=== PATIENT | male | born 1995 | race African-American/Black ===

== ENCOUNTER 2019-06-05 17:57 | Inpatient (IN) | payer OTHER ==
[~2019-06-05] VITALS: Ht 182.9 cm; Wt 95.6 kg
[2019-06-05] VITALS (7 sets, daily range): BP systolic 128–174; BP diastolic 74–102; O2SAT 100
[2019-06-05] MEDS ORDERED: PROPOFOL 1,000 MG/100 ML VIAL As Ordered ONE (18:10)
[2019-06-05] MEDS ORDERED: PROPOFOL 1,000 MG in IV 1 EA IV SCH (18:11)
[2019-06-05] MEDS ORDERED: SUCCINYLCHOLINE INJ 200 MG/10 ML VIAL (J0330) IV ONE (18:15)
[2019-06-05] MEDS ORDERED: ETOMIDATE INJ 20MG/10ML VIAL IV ONE (18:15)
[2019-06-05] MEDS ORDERED: NS 1,000 ML IV ONE ×2 (18:30→19:15)
[2019-06-05 18:32] LABS: BASO % 0.2 % (0.0-1.0); EOS % 0.2 % (0.0-3.0); HEMATOCRIT 51.9 % (42.0-52.0); HEMOGLOBIN 14.8 g/dl (13.5-17.5); LYMPH # 3.4 10^3/uL (1.5-5.0); LYMPH % 19.4 % (24.0-44.0); MEAN CORPUSCULAR HEMOGLOBIN 28.2 pg (27.0-33.0); MEAN CORPUSCULAR HGB CONC 28.5 g/dl (32.0-36.5); MONO # 0.8 10^3/uL (0.0-0.8); MONO % 4.6 % (0.0-5.0); NEUTROPHILS % 74.8 % (36.0-66.0); PLATELET COUNT, AUTOMATED 300 10^3/uL (150-450); RED BLOOD COUNT 5.24 10^6/uL (4.30-6.10); WHITE BLOOD COUNT 17.3 10^3/uL (4.0-10.0)
[2019-06-05 18:36] LABS: AMPHETAMINES LEVEL URINE NEGATIVE (NEGATIVE); BARBITURATES URINE NEGATIVE (NEGATIVE); BENZODIAZEPINES URINE NEGATIVE (NEGATIVE); CANNABINOIDS URINE NEGATIVE (NEGATIVE); COCAINE METABOLITE URINE NEGATIVE (NEGATIVE); METHADONE URINE POSITIVE (NEGATIVE); OPIATES URINE NEGATIVE (NEGATIVE); PHENCYCLIDINE URINE NEGATIVE (NEGATIVE)
[2019-06-05] MEDS ORDERED: SODIUM BICARBONATE 8.4% INJ 50 ML SYRINGE As Ordered ONE ×2 (18:47→18:49)
[2019-06-05 19:08] LABS: ACETAMINOPHEN LEVEL 115.7 UG/ML (10.0-30.0); ALBUMIN 4.3 GM/DL (3.2-5.2); ALT/SGPT 15 U/L (12-78); BILIRUBIN,DIRECT 0.1 MG/DL (0.0-0.2); BILIRUBIN,TOTAL 0.2 MG/DL (0.2-1.0); BLOOD UREA NITROGEN 13 MG/DL (7-18); CALCIUM LEVEL 9.8 MG/DL (8.5-10.1); CARBON DIOXIDE LEVEL 13 MEQ/L (21-32); CHLORIDE LEVEL 104 MEQ/L (98-107); CK-MB VALUE MASS 1.4 NG/ML (<3.6); CPK CREATINE PHOSPHOKINASE 449 U/L (39-308); CREATININE FOR GFR 1.79 MG/DL (0.70-1.30); ETHYL ALCOHOL (ETHANOL) < 0.003 % (0.000-0.010); GLOMERULAR FILTRATION RATE 50.8 (>60); GLUCOSE, FASTING 161 MG/DL (70-100); MB/CK RELATIVE INDEX 0.31 (< OR =4); POTASSIUM SERUM 4.5 MEQ/L (3.5-5.1); SALICYLATE LEVEL < 1.7 MG/DL (5.0-30.0); SODIUM LEVEL 146 MEQ/L (136-145); TROPONIN I < 0.02 NG/ML (< 0.10)
[2019-06-05] MEDS ORDERED: LIDOCAINE W/EPINEPHRINE 1% 20ML VIAL SC ONE (19:15)
[2019-06-05] MEDS ORDERED: SODIUM BICARBONATE 8.4% INJ 50 ML SYRINGE IV STA (19:16)
--- NOTE | 2019-06-05 19:18 | REPVR ---
PROCEDURE INFORMATION: Exam: CT Head Without Contrast Exam date and time: 06/05/2019 7:02 PM Age: 23 years old Clinical history: Pain; Headache; Additional info: Seizuer/trauma TECHNIQUE: Imaging protocol: Computed tomography of the head without contrast. Axial and coronal reformatted images were created and reviewed. Radiation optimization: All CT scans at this facility use at least one of these dose optimization techniques: automated exposure control; mA and/or kV adjustment per patient size (includes targeted exams where dose is matched to clinical indication); or iterative reconstruction. COMPARISON: No relevant prior studies available. FINDINGS: Brain: No CT evidence of acute intracranial hemorrhage or acute territorial infarction. No significant mass effect or midline shift. Basal cisterns patent. Ventricles: Normal in size and configuration. Bones/joints: No acute osseous abnormality. Sinuses: Grossly unremarkable. Mastoid air cells: Grossly unremarkable. Soft tissues: Grossly unremarkable. IMPRESSION: No CT evidence of acute intracranial pathology. Electronically signed by: Toro Moreno On 06/05/2019 19:18:28 PM
[2019-06-05 19:21] LABS: OSMOLALITY SERUM 322 MOSM/KG (275-295)
--- NOTE | 2019-06-05 19:27 | REPVR ---
PROCEDURE INFORMATION: Exam: CT Cervical Spine Without Contrast Exam date and time: 06/05/2019 7:02 PM Age: 23 years old Clinical history: Neck pain; Additional info: Seizuer/trauma TECHNIQUE: Imaging protocol: Computed tomography images of the cervical spine without contrast. Axial, coronal and sagittal reformatted images were created and reviewed. Radiation optimization: All CT scans at this facility use at least one of these dose optimization techniques: automated exposure control; mA and/or kV adjustment per patient size (includes targeted exams where dose is matched to clinical indication); or iterative reconstruction. COMPARISON: No relevant prior studies available. FINDINGS: Vertebrae: Straightening of the normal cervical lordosis. Alignment anatomic. Mild levoscoliosis. Congenital nonunion of the C1 posterior arch. No CT evidence of acute fracture, dislocation or subluxation. Vertebral body heights maintained. Discs/Spinal canal/Neural foramina: Intervertebral disc spaces preserved. No significant spinal canal or neural foraminal stenosis. Soft tissues: Grossly unremarkable. Lungs: Grossly unremarkable. IMPRESSION: 1. No CT evidence of acute cervical spine traumatic injury. 2. Additional findings, as above. Electronically signed by: Toro Moreno On 06/05/2019 19:26:30 PM
[2019-06-05] MEDS ORDERED: ACETYLCYSTEINE IV ONE ×2 (19:30→21:00)
[2019-06-05] MEDS ORDERED: D5W IV ONE ×2 (19:30→21:00)
--- NOTE | 2019-06-05 19:31 | REP ---
Right hand: Two views. History: Trauma. Findings: Two views right hand show overall normal mineralization. No fracture or subluxation is seen. Impression: No fracture noted. Electronically Signed by Gil Renee MD 06/05/2019 07:22 P
--- NOTE | 2019-06-05 19:32 | REP ---
Portable chest x-ray: Single view. History: Post intubation tube placement. Findings: A nasogastric tube is seen entering the gastric fundus. The side hole is in the distal esophagus. An endotracheal tube is seen in place at the level of the proximal clavicles in good position. The lungs are well inflated and clear. Pleural angles are sharp. No significant bony abnormality is seen. Impression: Endotracheal tube in good position. NG tube tip in the gastric fundus. No acute disease seen. Electronically Signed by Gil Renee MD 06/05/2019 07:24 P
[2019-06-05 19:51] LABS: ABG BASE EXCESS -4.6 (-2.0-2.0); ABG HCO3 18.2 MEQ/L (22.0-26.0); ABG O2 SATURATION 99.5 % (95.0-99.0); ABG PARTIAL PRESSURE CO2 27.8 mmHg (35.0-45.0); ABG PARTIAL PRESSURE O2 290.9 mmHg (75.0-100.0); ABG STANDARD HCO3 20.8 MEQ/L (22.0-26.0); ABG TOTAL CO2 19.1 MEQ/L (22.0-29.0); ABG pH (ARTERIAL) 7.435 UNITS (7.350-7.450)
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
[2019-06-05] MEDS: PROPOFOL 1,000 MG in IV 1 EA IV SCH (21:00)
[2019-06-05] MEDS: MIDAZOLAM INJ 2 MG/2 ML VIAL (J2250) IV PRN ×2 (21:04→22:31)
[2019-06-05] MEDS: HEPARIN SOD (PORCINE) 5000 UNITS/ML VIAL SC SCH (21:41)
[2019-06-05] MEDS: CHLORHEXIDINE GLUCONATE 0.12 % 15ML UDC (PERIDEX ORAL RINSE) MT SCH (21:42)
[2019-06-05 22:45] LABS: ALBUMIN 3.3 GM/DL (3.2-5.2); ALT/SGPT 18 U/L (12-78); BILIRUBIN,TOTAL 0.4 MG/DL (0.2-1.0); BLOOD UREA NITROGEN 13 MG/DL (7-18); CALCIUM LEVEL 8.3 MG/DL (8.5-10.1); CARBON DIOXIDE LEVEL 23 MEQ/L (21-32); CHLORIDE LEVEL 108 MEQ/L (98-107); CPK CREATINE PHOSPHOKINASE 361 U/L (39-308); CREATININE FOR GFR 1.59 MG/DL (0.70-1.30); GLOMERULAR FILTRATION RATE > 60.0 (>60); GLUCOSE, FASTING 145 MG/DL (70-100); POTASSIUM SERUM 3.5 MEQ/L (3.5-5.1); SODIUM LEVEL 145 MEQ/L (136-145); TOTAL PROTEIN 6.3 GM/DL (6.4-8.2)
[2019-06-06] VITALS (25 sets, daily range): BP systolic 114–168; BP diastolic 60–107; O2SAT 100
[2019-06-06] MEDS: PROPOFOL 1,000 MG in IV 1 EA IV SCH ×2 (01:07→06:34)
[2019-06-06 01:18] LABS: BILIRUBIN,DIRECT 0.1 MG/DL (0.0-0.2)
[2019-06-06] MEDS ORDERED: D5W IV ONE (01:30)
[2019-06-06] MEDS ORDERED: ACETYLCYSTEINE IV ONE (01:30)
[2019-06-06] MEDS: MIDAZOLAM INJ 2 MG/2 ML VIAL (J2250) IV PRN ×4 (02:07→08:14)
[2019-06-06 02:33] LABS: ALBUMIN 3.2 GM/DL (3.2-5.2); BILIRUBIN,DIRECT 0.1 MG/DL (0.0-0.2); BILIRUBIN,TOTAL 0.4 MG/DL (0.2-1.0)
[2019-06-06 06:07] LABS: BASO % 0.2 % (0.0-1.0); EOS % 0.1 % (0.0-3.0); HEMATOCRIT 42.4 % (42.0-52.0); HEMOGLOBIN 13.7 g/dl (13.5-17.5); LYMPH # 0.9 10^3/uL (1.5-5.0); MEAN CORPUSCULAR HEMOGLOBIN 28.2 pg (27.0-33.0); MEAN CORPUSCULAR HGB CONC 32.3 g/dl (32.0-36.5); MEAN CORPUSCULAR VOLUME 87.2 fl (80.0-96.0); MONO # 1.4 10^3/uL (0.0-0.8); MONO % 8.9 % (0.0-5.0); NEUTROPHILS # 13.3 10^3/uL (1.5-8.5); NEUTROPHILS % 84.3 % (36.0-66.0); PLATELET COUNT, AUTOMATED 246 10^3/uL (150-450); RED BLOOD COUNT 4.86 10^6/uL (4.30-6.10); WHITE BLOOD COUNT 15.8 10^3/uL (4.0-10.0)
[2019-06-06 06:31] LABS: ALBUMIN 3.5 GM/DL (3.2-5.2); BILIRUBIN,TOTAL 0.5 MG/DL (0.2-1.0); CALCIUM LEVEL 8.7 MG/DL (8.5-10.1); CREATININE FOR GFR 1.84 MG/DL (0.70-1.30); GLOMERULAR FILTRATION RATE 59.6 (>60); POTASSIUM SERUM 3.6 MEQ/L (3.5-5.1); TOTAL PROTEIN 6.8 GM/DL (6.4-8.2)
[2019-06-06] MEDS: HEPARIN SOD (PORCINE) 5000 UNITS/ML VIAL SC SCH ×3 (06:34→21:27)
[2019-06-06] MEDS: dexmedeTOMidine 200 MCG in IV 1 EA IV SCH ×2 (06:54→10:22)
--- NOTE | 2019-06-06 08:41 | REP ---
Portable chest x-ray: Single view. History: Intubated patient. Comparison study: June 05, 2019. Findings: Endotracheal tube remains in good position just above the level of the transverse aorta. NG tube enters the left upper quadrant of the abdomen. The lungs are symmetrically aerated and clear. Pleural angles are sharp. Heart size is normal. Impression: No acute disease. Endotracheal and nasogastric tubes in place. Electronically Signed by Gil Renee MD 06/06/2019 08:31 A
[2019-06-06] MEDS: PROPOFOL 200 MG/20 ML VIAL IV ONE (09:00)
--- NOTE | 2019-06-06 09:12 | ROOPDOC ---
[facility] Report Of Operation Report of Operation DATE OF PROCEDURE: 06/06/2019 PREPROCEDURE DIAGNOSES: Poor Peripheral Access POSTPROCEDURE DIAGNOSES: Poor Peripheral Access PROCEDURE: Right IJ central line placement Performed by: Gwen Jacobo D.O. Attending: Joanna Medellin M.D. ANESTHESIA: local ESTIMATED BLOOD LOSS: Approximately 5 mL. COMPLICATIONS: none PROCEDURE NOTE: Consent was obtained prior to the procedure. Indications, risks and benefits were explained to the patient's . Procedure was performed at bedside in the ICU. DESCRIPTION OF PROCEDURE: The patient was placed in the supine position, was placed in Trendelenburg. The right chest region and neck was prepped with chlorhexidine scrub. The patient was draped in the typical sterile fashion using a full drape. Ultrasonography was employed at bedside. A sterile probe cover was placed over the ultrasound. The medial and lateral head of the sternocleidomastoid were identified, as was the carotid pulse. The internal jugular vein was identified using ultrasound. Anesthesia was achieved over the internal jugular vein on the right using a 1% lidocaine solution. Once anesthetized, an introducer needle was inserted into the internal jugular vein under direct ultrasound visualization. Venous blood was withdrawn, syringe was removed and a guidewire was advanced on to the introducer needle. The guidewire was visualized in the internal jugular vein by ultrasound. A small incision was made in the skin surface with a scalpel, and the introducer needle was exchanged for a dilator over the guidewire. After appropriate dilation was obtained, the dilator was exchanged over the wire for a central venous catheter. The wire was removed, and the catheter was sutured in place. A sterile bandage was placed over the catheter site. The patient tolerated the procedure well without any hemodynamic compromise. At the time of procedure completion, all ports were aspirated and flushed properly. Postprocedure x-ray was performed, which demon strated adequate positioning of the central venous catheter in the right internal jugular vein and subclavian vein. The catheter is in satisfactory position which can used for IV medications and fluids. Joanna Castro, supervised and was present for the entirety of the procedure as detailed above. GWEN JACOBO DO Jun 06, 2019 09:12 JOANNA MEDELLIN MD Jun 06, 2019 12:08
--- NOTE | 2019-06-06 09:46 | REP ---
Portable chest x-ray: Single view. History: Line placement. Comparison study: June 06, 2019. Findings: Endotracheal tube is seen in good position above the level of the transverse aorta. An NG tube enters the gastric fundus. The lungs remain well inflated and clear. Oxygen delivery tubing and monitoring electrodes are seen. A right internal jugular central venous line has been inserted and this is seen coursing laterally terminating over the axilla on the right consistent with position in the axillary vein. There is no evidence of pneumothorax. Impression: Right internal jugular central venous line courses laterally in the axillary vein on the right side. There is no evidence of pneumothorax. Otherwise unchanged. Electronically Signed by Gil Renee MD 06/06/2019 09:37 A
[2019-06-06 09:55] LABS: MAGNESIUM LEVEL 2.7 MG/DL (1.8-2.4); PHOSPHORUS LEVEL 2.7 MG/DL (2.5-4.9)
[2019-06-06] MEDS: CHLORHEXIDINE GLUCONATE 0.12 % 15ML UDC (PERIDEX ORAL RINSE) MT SCH (10:13)
[2019-06-06] MEDS: PANTOPRAZOLE 40MG INJ (PROTONIX) (C9113) IV SCH (10:13)
[2019-06-06] MEDS: D5W/0.45% SODIUM CHLORIDE 1,000 ML IV SCH ×2 (10:13→18:36)
--- NOTE | 2019-06-06 11:17 | IPNPDOC ---
Subjective Date Seen The patient was seen on 06/06/19. Subjective Chief Complaint/HPI Patient is extubated. He is comfortable in no distress. is at bedside. Denies taking any opioids or narcotics General: Denies: ROS Unobtainable, Chills, Night Sweats, Fatigue, Malaise, Normal Appetite, Other Symptoms Constitutional: Denies: Chills, Fever, Malaise, Night Sweats, Weakness, Fatigu e, Weight Loss, Lethargy, Other Pulmonary: Denies: Dyspnea, Cough, Pleuritic Chest Pain, Other Symptoms Cardiovascular: Denies: Chest Pain, Palpitations, Orthopnea, Paroxysmal Noc. Dyspnea, Edema, Lt Headedness, Other Symptoms Gastrointestinal: Denies: Nausea, Vomiting, Abdominal Pain, Diarrhea, Constipation, Melena, Hematochezia, Other Symptoms Hematologic: Denies: Bruising, Bleeding Excessively, Petecchia, Purpura, Enlarged Lymph Nodes, Other Hematologic Musculoskeletal: Denies: Neck Pain, Back Pain, Shoulder Pain, Arm Pain, Hand Pain, Leg Pain, Foot Pain, Joint Pain, Muscle Pain, Spasms, Other Symptoms Neurological: Denies: Weakness, Numbness, Incoordination, Change in speech, Confusion, Seizures, Other Symptoms Objective Physical Examination General Exam: Positive: Alert, Cooperative Eye Exam: Positive: PERRLA, Conjunctiva & lids normal Neck Exam: Positive: Supple Chest Exam: Positive: Clear to auscultation, Normal air movement Heart Exam: Positive: Rate Normal, Normal S1, Normal S2 Abdomen Exam: Positive: Normal bowel sounds, Soft Extremity Exam: Positive: Normal pulses Skin Exam: Positive: Nl turgor and temperature Neuro Exam: Positive: Normal Tone, Cranial Nerves 3-12 NL Assessment /Plan Problems (1) Respiratory arrest Status: Acute Problem Text: Patient was found lethargic, as was intubated to protect his airway. Patient is extubated now. Discussed with Dr. Mullins Continue monitoring remains Stable, then he'll be transferred to medical floor is at the bedside and the plan of care was discussed with her (2) OD (overdose of drug) Status: Acute Problem Text: Patient is on acetylcysteine for Tylenol OD Repeat Tylenol, and LFTs at 5 PM Poison control was informed and is in touch with the medical staff MRSA left some normal, then he can be transferred to [facility] floor (3) Seizure Status: Chronic Problem Text: History of seizure disorders Seizure precautions Monitor clinically (4) Suicidal behavior Status: Acute Problem Text: Patient has one-to-one observation Will call psychiatry consultation to transfer patient to psych unit in a.m. Continue present care (5) Leukocytosis Status: Acute Problem Text: Patient's WBC count is 15.8, most likely acute phase reaction . There is no evidence of infection Repeat CBC in a.m. (6) PHUC (acute kidney injury) Status: Acute Problem Text: Acute kidney injury kidney injury, most likely secondary to drug OD Continue IV hydration Repeat BUN/creatinine a.m. Plan/VTE VTE Prophylaxis Ordered?: Yes VS, I&O, 24H, Fishbone Vital Signs/I&O Vital Signs Date Time Temp Pulse Resp B/P (MAP) Pulse Ox O2 Delivery O2 Flow Rate FiO2 06/06/19 08:00 40 06/06/19 08:00 99.3 104 20 150/82 (104) 99 Ventilator I&O- Last 24 Hours up to 6 AM 06/06/19 06:00 Intake Total 3018.6 ml Output Total 975 ml Balance 2043.6 ml Laboratory Data 24H LABS Laboratory Tests 2 06/05/19 18:06: Immature Granulocyte % (Auto) 0.8, Neutrophils (%) (Auto) 74.8H, Lymphocytes (%) (Auto) 19.4L, Monocytes (%) (Auto) 4.6, Eosinophils (%) (Auto) 0.2, Basophils (%) (Auto) 0.2, Neutrophils # (Auto) 13.0H, Lymphocytes # (Auto) 3.4, Monocytes # (Auto) 0.8, Eosinophils # (Auto) 0.0, Basophils # (Auto) 0.0, Nucleated Red Blood Cells % (auto) 0.0, Anion Gap 29H, Glomerular Filtration Rate 50.8L, Osmolality 322H, Calcium Level 9.8, Total Bilirubin 0.2, Direct Bilirubin 0.1, Aspartate Amino Transf (AST/SGOT) 15, Alanine Aminotransferase (ALT/SGPT) 15, Alkaline Phosphatase 84, Total Creatine Kinase 449H, Creatine Kinase MB 1.4, Creatine Kinase MB Relative Index 0.31, Troponin I < 0.02, Total Protein 8.0, Albumin 4.3, Albumin/Globulin Ratio 1.16, Thyroid Stimulating Hormone (TSH) 1.480, Salicylates Level < 1.7L, Acetaminophen Level 115.7H, Ethyl Alcohol Level < 0.003 06/05/19 18:08: Bedside Glucose (Misc Panel) 120H 06/05/19 18:09: Urine Opiates Screen NEGATIVE, Urine Methadone Screen POSITIVEH, Urine Barbitur ates Screen NEGATIVE, Urine Phencyclidine Screen NEGATIVE, Urine Amphetamines Screen NEGATIVE, Urine Benzodiazepines Screen NEGATIVE, Urine Cocaine Metabolite Screen NEGATIVE, Urine Cannabinoids Screen NEGATIVE 06/05/19 18:23: POC pH (Misc Panel) 6.734*L, POC Base Excess (Misc Panel) -27.0L, POC Saturated Percent O2 (Misc) 99H, POC pO2 (Misc Panel) 238.0H, POC pCO2 (Misc Panel) 61.4*H, POC HCO3 (Misc Panel) 8.2L, POC Total CO2 (Misc Panel) 10.0L 06/05/19 19:45: Blood Gas Bicarbonate Standard 20.8L, Arterial Blood pH 7.435, Arterial Blood Partial Pressure CO2 27.8L, Arterial Blood Partial Pressure O2 290.9H, Arterial Blood Total CO2 19.1L, Arterial Blood HCO3 18.2L, Arterial Blood Base Excess - 4.6L, Arterial Blood Oxygen Saturation 99.5H 06/05/19 19:53: Lactic Acid Level 4.9*H 06/05/19 22:05: Anion Gap 14, Glomerular Filtration Rate > 60.0, Calcium Level 8.3#L, Total Bilirubin 0.4#, Direct Bilirubin 0.1, Aspartate Amino Transf (AST/SGOT) 14, Alanine Aminotransferase (ALT/SGPT) 18, Alkaline Phosphatase 60, Total Creatine Kinase 361H, Total Protein 6.3#L, Albumin 3.3#, Albumin/Globulin Ratio 1.10 06/06/19 00:04: Lactic Acid Followup at 4 Hours 1.3 06/06/19 01:58: Total Bilirubin 0.4, Direct Bilirubin 0.1, Aspartate Amino Transf (AST/SGOT) 11, Alanine Aminotransferase (ALT/SGPT) 18, Alkaline Phosphatase 56, Total Protein 6.0L, Albumin 3.2, Albumin/Globulin Ratio 1.14 06/06/19 05:35: Total Bilirubin 0.5, Aspartate Amino Transf (AST/SGOT) 14, Alanine Aminotransferase (ALT/SGPT) 17, Alkaline Phosphatase 61, Total Protein 6.8, Alb umin 3.5, Albumin/Globulin Ratio 1.06, Immature Granulocyte % (Auto) 0.5, Neutrophils (%) (Auto) 84.3H, Lymphocytes (%) (Auto) 6.0L, Monocytes (%) (Auto) 8.9H, Eosinophils (%) (Auto) 0.1, Basophils (%) (Auto) 0.2, Neutrophils # (Auto) 13.3H, Lymphocytes # (Auto) 0.9L, Monocytes # (Auto) 1.4H, Eosinophils # (Auto) 0.0, Basophils # (Auto) 0.0, Nucleated Red Blood Cells % (auto) 0.0, Anion Gap 9, Glomerular Filtration Rate 59.6L, Calcium Level 8.7, Phosphorus Level 2.7, Magnesium Level 2.7H CBC/BMP Laboratory Tests 06/05/19 18:06 06/05/19 22:05 06/06/19 05:35 RONALD TORRES MD Jun 06, 2019 11:17
--- NOTE | 2019-06-06 13:52 | CCN ---
DATE: 06/06/2019 The patient was seen and examined this morning during bedside rounds. Overnight, the patient had an episode of vomiting around his orogastric (OG) tube. His OG tube has been on low wall intermittent suction. The OG tube was adjusted and suction was placed to continuous and he appeared to improve. He also had issues overnight with peripheral IV access with infiltration of his peripheral IVs and difficulty attaining new IVs. The patient was agitated as well later in the morning despite being on maximal doses of propofol and receiving Versed as needed (p.r.n.. He was therefore started on Precedex to help with sedation and for weaning trial this morning. PHYSICAL EXAMINATION: Temperature 97.9, pulse 94, respirations 23, blood pressure 135/75, O2 100% on the vent at 40%. Ins 216 and out 1 liter. General: The patient is intubated and sedated. He is responsive to painful stimuli in the bed, but is not awake, alert and following commands. HEENT: Normocephalic, atraumatic. Pupils are reactive to light bilaterally. Neck: Supple. There is no palpable adenopathy. No jugular venous distention (JVD). There are moist mucous membranes noted. Cardiovascular: Tachycardic, regular rate and rhythm. Normal S1 and S2. Unable to appreciate murmurs. Pulmonary: Coarse ventilated breath sounds bilaterally, but no wheezing, rales or rhonchi. Abdomen: Soft, does not appear tenderness and is nondistended. Extremities: There is no lower extremity edema noted bilaterally. On the right hand, he has sutures for a laceration. He also has infiltration noted in his right arm and to a lesser degree in the left arm as well. The patient has mitts on. LABORATORY DATA: WBC 15.8, hemoglobin 13.7 and platelets are 246. Chemistry: Sodium is 144, potassium 3.6, chloride is 109, bicarb 26, BUN is 12, creatinine is 1.84, glucose is 82. Lactic acid trending down to 1.3. AST and ALT within normal limits. Chest x-ray this morning shows endotracheal (ET) tube in position. The OG tube is coursing below the diaphragm. There are no focal opacities noted or effusions. ASSESSMENT; Mr. Funez is a 23-year-old male with no significant medical history who presented with a seizure after a likely intentional overdose with a possible suicide attempt after an argument with his . In the emergency department (ED), the patient was intubated for airway protection and his initial ABG showed severe metabolic acidosis with an inappropriate respiratory compensation. He had an anion gap acidosis likely secondary to lactic acidosis, possibly in the setting of a seizure. He was also noted to have acute kidney injury (PHUC) on admission. The patient's urine toxicology was positive for methadone as well as with an elevated Tylenol level. - The patient's lactic acidosis and metabolic acidosis has improved. - The patient was started on N-acetylcysteine for Tylenol overdose. His LFTs have remained normal. Appreciate poison control consult and recommendations. Will be repeating coagulation panel and a Tylenol level later in the evening as well as repeat liver function tests to continue to monitor. - The patient had PHUC on admission. His creatinine is increasing today. Will start him on IV fluids with D5 1/2 NS and continue to monitor his urine output and renal function. His CPK was trending down. Will repeat and continue to monitor CPK. - The patient's urine toxicology was also positive for methadone. His had denied any previous drug use in the past for the patient and so this is of unclear significance. Likely a false positive secondary to other medications that he may have ingested. The patient was suspected to have overdosed on diphenhydramine which can occasionally cause a false positive result for methadone on a urinary tox. - The patient is intubated and on mechanical ventilation with PRVC at settings of 480/20/40/5. He was agitated while on propofol and Versed and so was started on Precedex to help with sedation and weaning trial. The patient was able to be weaned off of the propofol with just the Precedex and was awake and alert and following commands appropriately. He was therefore extubated successfully earlier this morning. - Will continue oxygen supplementation for now and wean off as tolerated. Will advance his diet later today as tolerated as well. - The patient will be placed on one-to-one for suicidal ideation and he will need a psychiatry evaluation at some point. Deep vein thrombosis (DVT) prophylaxis. Heparin. Full code. Total critical care time spent, not including procedures, approximately 45 minutes. Please do not hesitate call for any further questions or concerns MTDD
[2019-06-06 16:54] LABS: INR 1.34; PROTHROMBIN TIME 16.3 SECONDS (11.8-14.0)
[2019-06-06 17:01] LABS: ACETAMINOPHEN LEVEL 2.6 UG/ML (10.0-30.0); ALBUMIN 3.2 GM/DL (3.2-5.2); ALT/SGPT 14 U/L (12-78); BILIRUBIN,TOTAL 0.4 MG/DL (0.2-1.0); BLOOD UREA NITROGEN 8 MG/DL (7-18); CALCIUM LEVEL 8.3 MG/DL (8.5-10.1); CARBON DIOXIDE LEVEL 26 MEQ/L (21-32); CHLORIDE LEVEL 111 MEQ/L (98-107); GLOMERULAR FILTRATION RATE > 60.0 (>60); GLUCOSE, FASTING 110 MG/DL (70-100); POTASSIUM SERUM 3.3 MEQ/L (3.5-5.1); SODIUM LEVEL 145 MEQ/L (136-145); TOTAL PROTEIN 6.4 GM/DL (6.4-8.2)
[2019-06-06] MEDS ORDERED: POTASSIUM CHLORIDE 10 MEQ SR TABLET PO ONE (19:00)
--- NOTE | 2019-06-06 19:40 | ECGEPIP ---
[facility] - ED Test Date: 2019-06-05 Pat Name: MARQUIS NOVOA Department: Room: [place] [address] Gender: Male Dye Feeder: paris michaels : 1995 Requested By: JENNY Marsh Order Number: [id number] Reading MD: Thony Bar Measurements Intervals [place] Rate: 150 P: 83 IN: 141 QRS: 74 QRSD: 100 T: 56 QT: 332 QTc: 524 Interpretive Statements SINUS TACHYCARDIA, POSSIBLE ATRIAL FLUTTER POSSIBLE RIGHT VENTRICULAR CONDUCTION DELAY NONSPECIFIC T-WAVE ABNORMALITY ABNORMAL RHYTHM ECG PROLONGED QTC BASELINE WANDERING MAY AFFECT READING NO PRIOR ECG FOR COMPARISON CLINICAL CORRELATION ADVISED Electronically Signed on 06-06-2019 19:40:20 EST by Thony Bar
[2019-06-06] MEDS ORDERED: IBUPROFEN 600 MG TAB PO ONE (20:30)
[2019-06-07] VITALS: BP 124/59
[2019-06-07] MEDS: D5W/0.45% SODIUM CHLORIDE 1,000 ML IV SCH (01:54)
[2019-06-07 04:00] VITALS: BP 130/67
[2019-06-07] MEDS: HEPARIN SOD (PORCINE) 5000 UNITS/ML VIAL SC SCH ×3 (05:05→22:00)
[2019-06-07 05:20] LABS: BASO % 0.2 % (0.0-1.0); EOS # 0.2 10^3/uL (0.0-0.5); EOS % 1.2 % (0.0-3.0); HEMATOCRIT 38.7 % (42.0-52.0); HEMOGLOBIN 12.4 g/dl (13.5-17.5); LYMPH # 1.7 10^3/uL (1.5-5.0); MEAN CORPUSCULAR HEMOGLOBIN 28.4 pg (27.0-33.0); MEAN CORPUSCULAR VOLUME 88.8 fl (80.0-96.0); MONO # 1.2 10^3/uL (0.0-0.8); MONO % 8.7 % (0.0-5.0); NEUTROPHILS # 10.9 10^3/uL (1.5-8.5); NEUTROPHILS % 77.6 % (36.0-66.0); PLATELET COUNT, AUTOMATED 211 10^3/uL (150-450); RED BLOOD COUNT 4.36 10^6/uL (4.30-6.10); WHITE BLOOD COUNT 14.1 10^3/uL (4.0-10.0)
[2019-06-07 05:50] LABS: ALBUMIN 2.9 GM/DL (3.2-5.2); ALT/SGPT 11 U/L (12-78); BILIRUBIN,TOTAL 0.2 MG/DL (0.2-1.0); BLOOD UREA NITROGEN 7 MG/DL (7-18); CALCIUM LEVEL 8.3 MG/DL (8.5-10.1); CARBON DIOXIDE LEVEL 27 MEQ/L (21-32); CHLORIDE LEVEL 111 MEQ/L (98-107); GLOMERULAR FILTRATION RATE > 60.0 (>60); GLUCOSE, FASTING 104 MG/DL (70-100); POTASSIUM SERUM 3.8 MEQ/L (3.5-5.1); SODIUM LEVEL 144 MEQ/L (136-145); TOTAL PROTEIN 5.9 GM/DL (6.4-8.2)
[2019-06-07] MEDS ORDERED: SUCCINYLCHOLINE 100 MG/5 ML SYRINGE (J0330) ONE (07:28)
[2019-06-07] MEDS ORDERED: ETOMIDATE INJ 20MG/10ML VIAL ONE (07:28)
[2019-06-07 08:00] VITALS: BP 130/68
[2019-06-07] MEDS: PANTOPRAZOLE 40MG INJ (PROTONIX) (C9113) IV SCH (09:48)
--- NOTE | 2019-06-07 10:37 | REP ---
CHEST, SINGLE VIEW: There is no evidence of acute infiltrate. No pleural effusion is seen. The heart is normal in size. The mediastinal silhouette is unremarkable. The visualized osseous structures are intact. IMPRESSION: No acute pulmonary disease. Electronically Signed by Ignacio Pearson MD 06/07/2019 04:21 P
[2019-06-07 12:00] VITALS: BP 125/65
--- NOTE | 2019-06-07 12:15 | DS.PDOC ---
Discharge Summary General Date of Admission Jun 05, 2019 at 18:51 Date of Discharge 06/05/19 Discharge Summary PROCEDURES PERFORMED DURING STAY: Intubation followed by subsequent extubation. ADMITTING DIAGNOSES: 1. Acute respiratory failure, seizures, drug overdose, Tylenol overdose, suicidal. DISCHARGE DIAGNOSES: 1. Acute respiratory failure, seizures, drug overdose, Tylenol overdose, suicidal. COMPLICATIONS/CHIEF COMPLAINT: Respiratory Arrest; Seizure. HISTORY OF PRESENT ILLNESS: Mr. Funez is a 23-year-old male with no significant medical history who presented to the emergency department (ED) with seizure and respiratory failure. History was obtained from the patient's , as the patient is intubated at time of examination and unable to provide a history. As per the patient's , they had gotten into an argument earlier, which became physical in terms of objects in the home but not with each other. They were throwing around glass objects, and there was broken glass, but the patient's denies any physical altercation between the two of them besides v erbal. The patient has a history of voicing suicidal thoughts to his but has never had any suicide attempts or any hospitalization for suicide attempts or been on any medications for depression either. After his argument today, the patient's had mentioned that she wanted to take a break from him, and patient has stormed out, presumably upset. The patient was thought to have gone to the nearby pharmacy and purchased unknown medication, which he then took with a likely intention of a suicidal attempt and overdose. The patient's and called emergency medical services (EMS), as he was noted to be altered and had difficulty speaking, although he was able to walk back to the home. . HOSPITAL COURSE: [Patient was initially admitted by the critical care team to ICU. Secondary to impending respiratory failure. He was electively intubated and was started on Mucomyst for elevated Tylenol level. Patient also has a methadone positive and urine tox which could be most likely secondary to false positive secondary to Benadryl or some other medication as patient and his have declined that he took any opiates. Patient also was started on IV fluids, kept nothing by mouth initially. Once he was more alert, awake patient, so he was subsequently extubated without any problems. Patient is clinically stable, afebrile, asymptomatic, tolerating oral feeding and can be discharged to inpatient mental health unit today. I called Dr. Jian in his spoke with him and he will see patient today this afternoon and will decide whether patient can be transferred to [facility] today. In the meantime, will continue one-to-one observation until cleared by psychiatry. DISCHARGE MEDICATIONS: Please see below. ALLERGIES: Please see below. PHYSICAL EXAMINATION ON DISCHARGE: VITAL SIGNS: Please see below. GENERAL: Within normal limits HEENT: PERRLA, XRT, muscle intact NECK: Supple, no jvd, no lymphadenopathy CARDIOVASCULAR EXAMINATION: S1, S2, regular RESPIRATORY EXAMINATION: Clear to A&P ABDOMINAL EXAMINATION: , Soft, nontender, bowel sounds present EXTREMITIES: Clubbing, cyanosis, edema SKIN: Normal NEUROLOGICAL EXAMINATION: Focal motor sensory deficit PSYCHIATRIC EXAMINATION: Normal LABORATORY DATA: Please see below. IMAGING: Repeat chest x-ray:No acute pulmonary disease. PROGNOSIS: good ACTIVITY: As tolerated. DIET: As tolerated DISCHARGE PLAN: discharge to inpatient mental health unit DISPOSITION: . [facility] DISCHARGE INSTRUCTIONS: 1. As per discharge instructions. ITEMS TO FOLLOWUP ON ON OUTPATIENT: 1. Follow with psych. DISCHARGE CONDITION: Stable. TIME SPENT ON DISCHARGE: 43 minutes Vital Signs/I&Os Vital Signs Date Time Temp Pulse Resp B/P (MAP) Pulse Ox O2 Delivery O2 Flow Rate FiO2 06/07/19 08:00 98.8 70 20 130/68 (88) Room Air 06/07/19 00:00 97 06/06/19 11:00 28 I&O- Last 24 Hours up to 6 AM 06/07/19 06:00 Intake Total 4646 ml Output Total 1800 ml Balance 2846 ml Laboratory Data Labs 24H Laboratory Tests 2 06/06/19 12:36: Magnesium Level 2.3 06/06/19 16:27: Prothrombin Time 16.3H, Prothromb Time International Ratio 1.34, Anion Gap 8, Glomerular Filtration Rate > 60.0, Calcium Level 8.3L, Total Bilirubin 0.4, Aspa rtate Amino Transf (AST/SGOT) 12, Alanine Aminotransferase (ALT/SGPT) 14, Alkaline Phosphatase 59, Total Protein 6.4, Albumin 3.2, Albumin/Globulin Ratio 1.00, Acetaminophen Level 2.6L 06/07/19 05:04: Anion Gap 6L, Glomerular Filtration Rate > 60.0, Calcium Level 8.3L, Total Bi lirubin 0.2, Aspartate Amino Transf (AST/SGOT) 12, Alanine Aminotransferase (ALT/SGPT) 11L, Alkaline Phosphatase 63, Total Protein 5.9L, Albumin 2.9L, Albumin/Globulin Ratio 0.97L, Immature Granulocyte % (Auto) 0.3, Neutrophils (%) (Auto) 77.6H, Lymphocytes (%) (Auto) 12.0L, Monocytes (%) (Auto) 8.7H, Eosinophils (%) (Auto) 1.2, Basophils (%) (Auto) 0.2, Neutrophils # (Auto) 10.9H, Lymphocytes # (Auto) 1.7, Monocytes # (Auto) 1.2H, Eosinophils # (Auto) 0.2, Basophils # (Auto) 0.0, Nucleated Red Blood Cells % (auto) 0.0 CBC/BMP Laboratory Tests 06/06/19 16:27 06/07/19 05:04 Discharge Medications No Active Prescriptions or Reported Meds Allergies Coded Allergies: No Known Allergies (Verified Allergy, Unknown, 06/05/19) RONALD TORRES MD Jun 07, 2019 12:15
[2019-06-07 16:00] VITALS: BP 120/74
[2019-06-07 20:00] VITALS: BP 134/77
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
== END 2019-06-07 23:06 | DRG 917 ==
LOC: EDBD 17:57 → M ED 17:57 → M ED INP 18:51 → M ICU 20:55
PROVIDERS: ADMIT Internal Medicine Pulmonary Disease; ATTEND Internal Medicine Pulmonary Disease
PROC: 5A1935Z Respiratory Ventilation, Less than 24 Consecutive Hours (ICD-10-PCS; principal; 2019-06-05)
PROC: 0BH17EZ Insertion of Endotracheal Airway into Trachea, Via Natural or Artificial Opening (ICD-10-PCS; 2019-06-05)
DX: T39.91XA Poisoning by unspecified nonopioid analgesic, antipyretic and antirheumatic, accidental (unintentional), initial encounter (principal); J96.00 Acute respiratory failure, unspecified whether with hypoxia or hypercapnia; N17.9 Acute kidney failure, unspecified; E87.2 Acidosis; R45.851 Suicidal ideations; D72.829 Elevated white blood cell count, unspecified; Z63.0 Problems in relationship with spouse or partner; F43.25 Adjustment disorder with mixed disturbance of emotions and conduct

== ENCOUNTER 2019-06-07 22:46 | Inpatient (IN) | payer OTHER ==
[~2019-06-07] VITALS: Ht 177.8 cm; Wt 97.7 kg
[2019-06-07] MEDS ORDERED: MAALOX 30 ML SUSP *UDC PO PRN (23:00)
[2019-06-07] MEDS ORDERED: ACETAMINOPHEN TAB 650MG DOSE (2X325MG) PO PRN (23:00)
[2019-06-07] MEDS ORDERED: MOM 30ML SUSPENSION UDC PO PRN (23:00)
[2019-06-07] MEDS ORDERED: traZODone 50 MG TAB PO PRN (23:00)
[2019-06-07] MEDS ORDERED: LORazepam 1 MG TAB PO PRN (23:00)
[2019-06-08 00:18] VITALS: BP 152/88
[2019-06-08 07:04] VITALS: BP 140/82
--- NOTE | 2019-06-08 11:11 | MHHPEPDOC ---
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 He reportedly had a miscarriage with his and that they lost the child. It's resulting in significant stress and arguments that he reports has caused him to gain significant self reproach, guilt, loss of interest and difficulty with fatigue. He is very guarded upon initial interview describing that he has no depression; however, he still appears quite dysthymic. The patient reports that he has had no history of psychiatric involvement and has otherwise is unsure of how he got to the point of arguing. He states that he is glad that he is alive and does feel guilt about his attempt. Review Of Systems Depression: As above. Anxiety: The patient denies any excessive worry associated with physical symptoms. They deny any experience of discreet panic in the past. Aisa: The patient denies any episodes of euphoria/dysphoria associated with decreased need for sleep, hedonism, talkatively or impulsivity lasting longer th an 5 days. Psychotic: The patient denies any experiences of auditory or visual hallucinations. They deny any episodes of paranoia or delusional thinking in the past Trauma: The patient denies any traumatic events associated with nightmares or intrusive thoughts. Borderline: The patient screens negative for borderline personality at this junction. Past Psychiatric History The patient reports no history of psychiatric admissions, medication trials or current follow up. Denies any history of suicide attempts. Allergies Please see below. Family Psychiatric History The patient denies/is unaware any history of mental health history including addictions and suicide. 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 They recently lost a . He does have a 2-year-old son with her. He identifies as heterosexual. He has no history of legal problems, currently is on income, completed high school. He grew up with parents, , but generally with good relationship with his father. He has 2 younger brothers and 1 older sister with good relationship. 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 Substance Abuse History The patient denies any excessive alcohol use, tobacco or illicit drug use, denies history of substance use treatment. Medical History Patient has no significant past medical history. Mental Status Examination General: Well dressed with good hygiene Speech: Monotonous Thought processes: Linear and logical MSK: Smooth and coordinated gait, no signs of tremors or involuntary orofacial movements Thought content: Hopeless Abstract reasoning, and computation: Intact Description of associations: Intact Description of abnormal or psychotic thoughts: Denies any suicidal or homicidal ideation. Denies any auditory or visual hallucinations. Does not appear to be responding to internal stimuli. Does not appear to be endorsing any bizarre or paranoid ideation. Judgment: Poor Insight: Poor Orientation: Alert and orientated 3 Cognition: Grossly normal Recent and remote memory: Intact Attention span and concentration: Intact Fund of knowledge: Adequate Mood: "fine" Affect: Profoundly dysthymic with a constricted affect Diagnoses Unspecified depressive disorder. Severe judgment versus MDD. Assessment and Plan Unspecified depressive disorder: Discussed with patient about the use of antidepressants. He has never tried medications before. Discussed the risks and benefits of non-treatment versus therapy and medications, he elected at this time to try therapy. Disposition The patient will need admission likely lasting longer than 2 midnights in order to treat his severe depression. Problem List 1. Risk for suicide. 2. Depression. 3. Ineffective coping. Initial Treatment Plan 1. Patient was admitted on a 9.39 legal status. 2. Complete history was obtained. 3. With patients permission, family will be contacted and database will be expanded. 4. Patients medication regimen will be reviewed and changed accordingly. 5. Patient will be provided with protected environment. 6. Patient will be treated with individual, group, and milieu therapies. 7. Patient will receive supportive psych-education. 8. Discharge planning will commence immediately. 9. Outpatient follow-up treatment will be strongly recommended. 10. The initial treatment plan will focus initially on: Estimated Length Of Stay 3 days. Time Spent 70 minutes. Friday Vital Signs Vital Signs Date Time Temp Pulse Resp B/P (MAP) Pulse Ox O2 Delivery O2 Flow Rate FiO2 06/08/19 07:04 97.3 77 16 140/82 (101) 06/08/19 00:18 99 Room Air Medications No Active Prescriptions or Reported Meds Allergies Coded Allergies: No Known Allergies (Verified Allergy, Unknown, 06/05/19) SUMA ZACARIAS DO Jun 08, 2019 11:11
--- NOTE | 2019-06-08 12:10 | HPEPDOC ---
General Date of Admission Jun 07, 2019 at 23:07 Date of Service: Jun 08, 2019 Chief Complaint The patient is a 23-year-old male admitted with a reason for visit of Adjustment D/O W/Disturbance. Source: Patient, RN/MD, Old records Exam Limitations: No limitations Associated Symptoms: Denies Symptoms History of Present Illness Mr. Funez is a 23 year old male who has been admitted to the [facility] with a diagnosis of Adjustment disorder with disturbance. He is being assessed by the hospitalist group for any comorbidities. Mr. Funez was taken to the ED on 06/05/19 due to seizure and respiratory failure; subsequently found to have an PHUC. He had argued with his partner and "taken a bunch of pills" following their argument. Pt denied an intent to harm himself; he stated he wanted to show his girlfriend 'just how serious [he was]." He took several Tylenol PM, Zzzquil and cannot recall what else. He does not recall being in the ED or having a seizure. Today he admitted his actions were more harmful to him than otherwise. He denied any new or worsening medical symptoms at this time. Home Medications No Active Prescriptions or Reported Meds Allergies Coded Allergies: No Known Allergies (Verified Allergy, Unknown, 06/05/19) Past Medical History Medical History Seizure Respiratory Failure secondary to overdose Metabolic acidosis PHUC Surgical History Hernia repair during childhood Family History Significant Family History: No pertinent family hx Social History * Smoker: Denies Alcohol: occationally ('couple of shots' once every 2 weeks) Drugs: denies, other A-FIB/CHADSVASC A-FIB History Current/History of A-Fib/PAF?: No Current PO Anticoag Therapy: No Review of Systems Constitutional: Denies: Chills, Fever, Night Sweats Eyes: Denies: Pain, Vision change ENT: Denies: Head Aches Skin: Denies: Rash Pulmonary: Denies: Dyspnea, Cough Cardiovascular: Denies: Chest Pain, Palpitations Gastrointestinal: Denies: Nausea, Vomiting, Abdominal Pain, Diarrhea Genitourinary: Denies: Dysuria, Retention Hematologic: Denies: Bruising Musculoskeletal: Denies: Neck Pain, Back Pain, Joint Pain, Muscle Pain, Spasms Neurological: Denies: Weakness Psych: Reports: Mood Normal; Denies: Thoughts of Self Harm, Thoughts of Harming Other Physical Examination General Exam: Positive: Alert, No Acute Distress Eye Exam: Positive: PERRLA, Conjunctiva & lids normal, EOMI; Negative: Sclera icteric ENT Exam: Positive: Atraumatic, Mucous membr. moist/pink, Pharynx Normal Neck Exam: Positive: Supple; Negative: thyromegaly Chest Exam: Positive: Clear to auscultation, Normal air movement Heart Exam: Positive: Rate Normal, Regular Rhythm, Normal S1, Normal S2; Negative: Murmurs, Rubs Telemetry: Positive: No significant arrhythmia Abdomen Exam: Positive: Normal bowel sounds, Soft; Negative: Tenderness Extremity Exam: Positive: Normal pulses; Negative: Clubbing, Cyanosis, Edema Skin Exam: Positive: Nl turgor and temperature; Negative: Breakdown, Lesion Neuro Exam: Positive: Normal Gait, Normal Speech, Cranial Nerves 3-12 NL Psych Exam: Positive: Mood NL, Oriented x 3 Vital Signs Vital Signs Date Time Temp Pulse Resp B/P (MAP) Pulse Ox O2 Delivery O2 Flow Rate FiO2 06/08/19 07:04 97.3 77 16 140/82 (101) 06/08/19 00:18 99 Room Air Assessment/Plan Mr. Funez is a 23 year old male who has been admitted to the [facility] with a diagnosis of Adjustment disorder with disturbance. He has a recent PMHx of PHUC, - Respiratory Failure and Seizure following an overdose of Tylenol and Zzzquil plus some other OTC medications unknown. Previously, the patient had no significant medical history. Patient was intubated for airway protection in the ED and the history provided by his . The patient reportedly had a witnessed seizure in the ED and was given Versed. On admission, he was acidotic, treated with 1 ampule of bicarb and 2L saline bolus. The patient was sedated with propofol following intubation. Urine toxicology was positive for Methadone and Acetaminophen level was 115.7. He was manged for tylenol toxicity with NAC. CXR: " No pulmonary infiltrates or effusions." Head CT: "no acute intracranial hemorrhage or acute infarction." C-Spine CT: "No evidence of acute cervical spine traumatic injury. 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 He was given IVF, later extubated without any issues. He was assessed to be medically stable for transfer to [facility]. S/p Intentional polysubstance overdose -including tylenol overdose.treated with n-acetyl cysteine -s/p acute respiratory failure , seizure requiring intubation -current management as per psychiatry. PHUC - improving - Cr 1.84 - 1.50 - monitor BMP qam for 2days for resolution - encourage fluid intake today Adjustment disorder with disturbance - management per psychiatry Plan / VTE VTE Prophylaxis Ordered?: No MAGDALENA BURTON PA-C Jun 08, 2019 12:10 TOMMIE ROSARIO MD Jun 08, 2019 17:26
[2019-06-08 16:14] VITALS: BP 150/90
[2019-06-09 06:36] VITALS: BP 138/87
--- NOTE | 2019-06-09 12:05 | MHIPNPDOC ---
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 He reportedly had a miscarriage with his and that they lost the child. It's resulting in significant stress and arguments that he reports has caused him to gain significant self reproach, guilt, loss of interest and difficulty with fatigue. He is very guarded upon initial interview describing that he has no depression; however, he still appears quite dysthymic. The patient reports that he has had no history of psychiatric involvement and has otherwise is unsure of how he got to the point of arguing. He states that he is glad that he is alive and does feel guilt about his attempt. Interval History The patient is met with. He has been doing well. He has been attending groups, relatively social on the unit. He reports his depression has improved. He's become more interested and is excited to return home tomorrow. He otherwise has no complaints. No major behavioral problems noted by nursing. He has been friendly and amenable by their interpretation. Review Of Systems Denies any chest pain, shortness of breath, upset stomach, nausea, vomiting, constipation, diarrhea, dizziness, or tremors. Psychotherapy None on this visit. Vital Signs Reviewed. Mental Status Examination General: Well dressed with good hygiene Speech: Monotonous Thought processes: Linear and logical MSK: Smooth and coordinated gait, no signs of tremors or involuntary orofacial movements Thought content: Less hopeless Abstract reasoning, and computation: Intact Description of associations: Intact Description of abnormal or psychotic thoughts: Denies any suicidal or homicidal ideation. Denies any auditory or visual hallucinations. Does not appear to be responding to internal stimuli. Does not appear to be endorsing any bizarre or paranoid ideation. Judgment: Improved Insight: Improved Orientation: Alert and orientated 3 Cognition: Grossly normal Recent and remote memory: Intact Attention span and concentration: Intact Fund of knowledge: Adequate Mood: "fine" Affect: Less dysthymic, more reactive Diagnoses Unspecified depressive disorder. Severe adjustment versus MDD. Assessment and Plan Unspecified depressive disorder: Discussed with patient about the use of antidepressants. He has never tried medications before. Discussed the risks and benefits of non-treatment versus therapy and medications, he elected at this time to try therapy. Disposition Discharge tomorrow as no longer meets involuntary criteria. Time Spent 15 minutes [id number]. Friday Vital Signs Vital Signs Date Time Temp Pulse Resp B/P (MAP) Pulse Ox O2 Delivery O2 Flow Rate FiO2 06/09/19 06:36 98.2 67 14 138/87 (104) Room Air 06/08/19 00:18 99 Current Medications Current Medications Medications (Trade) Dose Ordered Sig/Ruchi Route PRN Reason Start Time Stop Time Status Last Admin Dose Admin Acetaminophen (Tylenol Tab) 650 mg Q6HP PRN PO HEADACHE or DISCOMFORT 06/07/19 23:00 Al Hydrox/Mg Hydrox/Simethicone (Mylanta) 30 ml Q4HP PRN PO HEARTBURN/INDIGESTION 06/07/19 23:00 Lorazepam (Ativan) 1 mg Q4HP PRN PO ANXIETY/AGITATION 06/07/19 23:00 Magnesium Hydroxide (Milk Of Magnesia) 30 ml DAILYPRN PRN PO CONSTIPATION 06/07/19 23:00 Trazodone HCl (Desyrel) 50 mg QHSP PRN PO INSOMNIA 06/07/19 23:00 Allergies Coded Allergies: No Known Allergies (Verified Allergy, Unknown, 06/05/19) SUMA ZACARIAS DO Jun 09, 2019 12:05
[2019-06-09 14:46] LABS: BLOOD UREA NITROGEN 6 MG/DL (7-18); CALCIUM LEVEL 9.4 MG/DL (8.5-10.1); CARBON DIOXIDE LEVEL 33 MEQ/L (21-32); CHLORIDE LEVEL 105 MEQ/L (98-107); CREATININE FOR GFR 1.22 MG/DL (0.70-1.30); GLOMERULAR FILTRATION RATE > 60.0 (>60); GLUCOSE, FASTING 109 MG/DL (70-100); POTASSIUM SERUM 3.6 MEQ/L (3.5-5.1); SODIUM LEVEL 143 MEQ/L (136-145)
[2019-06-09 16:43] VITALS: BP 153/87
[2019-06-10 06:13] VITALS: BP 144/98
--- NOTE | 2019-06-10 10:22 | MHDSPDOC ---
[facility] Discharge Summary Discharge Summary DATE OF ADMISSION: Jun 07, 2019 at 23:07 DATE OF DISCHARGE: 06/10/19 Discharge Marquis Funez MRN: N/A Date of : N/A Date of Service: 06/10/2019 Diagnoses Unspecified depressive disorder. Severe adjustment versus MDD. 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 He reportedly had a miscarriage with his and that they lost the child. It's resulting in significant stress and arguments that he reports has caused him to gain significant self reproach, guilt, loss of interest and difficulty with fatigue. He is very guarded upon i nitial interview describing that he has no depression; however, he still appears quite dysthymic. The patient reports that he has had no history of psychiatric involvement and has otherwise is unsure of how he got to the point of arguing. He states that he is glad that he is alive and does feel guilt about his attempt. Consultants Involved Hospitalist/PCP screening Treatment and Progress On The Unit The patient was admitted to the inpatient unit where he was subsequently observed. He had had a significant overdose, however, after 72 hours of observation the patient had been generally amenable with a normal mental status exam primarily having what appears to be a severe adjustment reaction. He had been discussed multiple times about the use of medications, but stated that he was uninterested in those and had wanted to participate in therapy. He was observed for several days where he had been consistently denying suicidal or homicidal ideation, had been attending groups in behavioral control and did not appear overtly impaired by his mental health conditions and thus on the day of discharge he did not meet involuntary criteria due to performance risk factors and declined further voluntary admission. Discharge Assessment 23-year-old man with a history of likely adjustment provoking what appears to be an overdose of Tylenol requiring ICU treatment. He appears to do well with min imal interventions suggesting likely severe adjustment consistent with the psychosocial stressors. He could be minimizing and having more significant depressive symptoms, however, he is able to conceal them well this is the case. He does not meet involuntary criteria in my judgment due to the factors elaborated above and declines further voluntary and thus must be discharging in good carlos. Mental Status Examination General: Well dressed with good hygiene Speech: Spontaneous and fluid Thought processes: Linear and logical MSK: Smooth and coordinated gait, no signs of tremors or involuntary orofacial movements Thought content: Future orientated Abstract reasoning, and computation: Intact Description of associations: Intact Description of abnormal or psychotic thoughts: Denies any suicidal or homicidal ideation. Denies any auditory or visual hallucinations. Does not appear to be re sponding to internal stimuli. Does not appear to be endorsing any bizarre or paranoid ideation. Judgment: fair Insight: fair Orientation: Alert and orientated 3 Cognition: Grossly normal Recent and remote memory: Intact Attention span and concentration: Intact Fund of knowledge: Adequate Mood: "okay" Affect: Euthymic with a full range Follow Up The social work team worked during the predischarge meeting in order to evaluate for further issues of lethality address them fully before discharge. They worked on safety planning with the patient's family members in order to ensure that the patient will have a safe and effective discharge. Time Spent The amount of time spent in the coordination of care for this patient was approximately 60 minutes. Vital Signs/I&Os Vital Signs Date Time Temp Pulse Resp B/P (MAP) Pulse Ox O2 Delivery O2 Flow Rate FiO2 06/10/19 06:13 98.7 75 16 144/98 (113) 06/09/19 06:36 Room Air 06/08/19 00:18 99 Laboratory Data Labs 24H Laboratory Tests 2 06/09/19 14:10: Anion Gap 5L, Glomerular Filtration Rate > 60.0, Calcium Level 9.4 CBC/BMP Laboratory Tests 06/09/19 14:10 Medications No Active Prescriptions or Reported Meds Allergies Coded Allergies: No Known Allergies (Verified Allergy, Unknown, 06/05/19) SUMA ZACARIAS DO Jun 10, 2019 10:22
== END 2019-06-10 12:47 | disposition home or self-care (01) | DRG 881 ==
LOC: M PSY 23:07
PROVIDERS: ADMIT Psychiatry & Neurology Psychiatry; ATTEND Psychiatry & Neurology Addiction Medicine
DX: F32.9 Major depressive disorder, single episode, unspecified (principal); N17.9 Acute kidney failure, unspecified

== ENCOUNTER 2019-09-12 19:37 | Emergency (ER) | payer OTHER ==
[~2019-09-12] VITALS: Ht 177.8 cm; Wt 93.2 kg
[2019-09-12 19:38] VITALS: BP 153/83
== END 2019-09-12 20:56 | disposition home or self-care (01) ==
LOC: M ED 19:37
DX: Z03.818 Encounter for observation for suspected exposure to other biological agents ruled out (principal); R05 Cough; R51 Headache; R07.0 Pain in throat; R56.9 Unspecified convulsions; F32.9 Major depressive disorder, single episode, unspecified